=== PATIENT | female | born 1960 | race Caucasian/White ===

== ENCOUNTER 2021-06-01 13:37 | Emergency (ER) | payer OTHER, BC ==
[2021-06-01 13:54] VITALS: BMI 26.5
[2021-06-01] MEDS ORDERED: ACETAMINOPHEN 325 MG TABLET (FP) PO ONE (14:32)
[2021-06-01] MEDS ORDERED: TETANUS AND DIPHTHERIA TOXOID 0.5 ML DISP.SYRIN IM ONE (16:14)
[2021-06-01] MEDS ORDERED: DIPHTH,PERTUSS(ACELL),TET 0.5 ML DISP.SYRIN IM ONE ×2 (17:21→17:29)
[2021-06-01 17:47] VITALS: BP 110/60; PULSE 66; TEMP 97.2
== END 2021-06-01 17:50 | disposition home or self-care (01) ==
LOC: JER 13:37
PROC: 3E0234Z Introduction of Serum, Toxoid and Vaccine into Muscle, Percutaneous Approach (ICD-10-PCS; principal; 2021-06-01)
DX: M25.539 Pain in unspecified wrist (principal); M25.561 Pain in right knee; W10.8XXA Fall (on) (from) other stairs and steps, initial encounter; Y93.01 Activity, walking, marching and hiking
CPT/HCPCS: 70450-TC; 73070-TC-LT-FY; 73070-TC-RT-FY; 73110-TC-RT-FY; 73130-TC-RT-FY; 73564-TC-RT-FY; 90715; 99285-25